=== PATIENT | female | born 1935 | race Caucasian/White ===

== ENCOUNTER 2016-09-26 14:54 | Emergency (ER) | payer OTHER ==
[~2016-09-26] VITALS: Ht 160 cm; Wt 52.3 kg
[~2016-09-26 14:54] MED LIST: ALPR-475 PO; ATOR20TA9 PO; FLUO10TA PO; HYDR-3307 PO; LEVO100T5 PO
[2016-09-26 15:00] VITALS: BP 134/81
[2016-09-26] MEDS ORDERED: LIDOCAINE 1%-EPI 1:100K, 30ML ONE (15:23)
[2016-09-26] MEDS ORDERED: ONDANSETRON ODT 4 MG PO ONE (15:30)
[2016-09-26] MEDS ORDERED: LIDOCAINE 1%-EPI 1:100K, 20ML SQ ONE (15:30)
[2016-09-26 15:57] LABS: BLOOD UREA NITROGEN 12 mg/dL (7-18)
[2016-09-26] MEDS ORDERED: ONDANSETRON ODT 4 MG ONE (16:09)
== END 2016-09-26 17:28 | disposition home or self-care (01) ==
LOC: ED 16:16
DX: S00.03XA Contusion of scalp, initial encounter (principal); X58.XXXA Exposure to other specified factors, initial encounter; Y93.89 Activity, other specified; Y92.89 Other specified places as the place of occurrence of the external cause; Y99.8 Other external cause status
CPT/HCPCS: 10060; 36415; 70450; 80048; 82040; 85025; 99285; Q0162

== ENCOUNTER 2020-12-28 12:43 | Outpatient (CLI) | payer MEDICARE, OTHER ==
[~2020-12-28 12:43] MED LIST changes: -ALPR-475 PO; +ALPR0.5T7 PO; +ATOR20TA37 PO; -ATOR20TA9 PO; +HYDR-3248 PO; -HYDR-3307 PO
== END 2020-12-28 23:59 | disposition home or self-care (01) ==
LOC: CFH 12:43
PROVIDERS: ATTEND Internal Medicine Cardiovascular Disease
DX: I08.3 Combined rheumatic disorders of mitral, aortic and tricuspid valves (principal); I11.9 Hypertensive heart disease without heart failure; R01.1 Cardiac murmur, unspecified
CPT/HCPCS: 93306